=== PATIENT | male | born 1995 | race Caucasian/White ===

== ENCOUNTER 2025-06-23 22:23 | Emergency (ER) | payer BC, SELFPAY ==
[2025-06-23 22:34] VITALS: BP 127/63; PULSE 107; RESP 18; TEMP 36.4; O2SAT 97; BMI 21.6
--- NOTE | 2025-06-23 23:11 | ED.GENADULT ---
HPI - General Adult General Chief complaint: Unspecified Complaint, Adult Stated complaint: migraine Time Seen by Provider: 06/23/25 22:37 History of Present Illness HPI narrative: This 30-year-old female comes in with his significant other. He is reporting some symptoms of nausea and mild headache and feeling overheated. He was outside in a warm humid day today and states that he was drinking fluids and also reports having a couple beers but nothing excessive. He at times felt hot and cold. He arrives here with tachycardia and heart rate at 107 beats per minute. Other vital signs are in normal range. Coming in here in the air conditioning he states now that he is feeling better. Related Data Home Medications ?Medication ?Instructions ?Recorded ?Confirmed No Known Home Medications 06/23/25 06/23/25 Allergies Allergy/AdvReac Type Severity Reaction Status Date / Time cat dander Allergy Mild Verified 06/23/25 22:37 Review of Systems Status of ROS: Reports: 10 or more systems reviewed and unremarkable except as noted in History and below Narrative: Constitutional: No fevers, no weight gain or loss. Eyes: No discharge. No vision changes. HENT: No congestion, no sore throat, no ear pain. Cardiovascular: No chest pain, no palpitations. Respiratory: No shortness of breath, no wheezes, no cough. Gastrointestinal: No abdominal pain, no vomiting, no diarrhea. Genitourinary: No dysuria, no hematuria. Musculoskeletal: Normal range of motion. Skin: No rashes, no pruritis. Neurological: No dizziness, weakness, sensory change, speech change. Endo/Heme/Allergies: No bruising or bleeding. No polydipsia. Pysch: no suicidality, no anxiety, no insomnia. All other systems reviewed and are negative. PFSH PFS Social History Smoking Status: Never smoker How often do you have a drink containing alcohol: 2-4 times a month AUDIT-C Alcohol total score: 2 Non-prescribed substance use: denies use Exam Narrative: Exam Narrative: Constitutional: Well-developed, well-nourished, no acute distress. HEENT: Normocephalic, atraumatic. Neck: Normal range of motion. Nontender. Supple. Heart: Intact distal pulses. Mild tachycardia. Lungs: No chest discomfort. No wheezes, rhonchi, or rales. Abdomen: Nontender. Back: Normal range of motion. Extremities: Normal range of motion. No injury. Skin: Intact. No rash. Warm. No erythema or pallor. Neurologic: No altered sensation. No weakness. Alert and oriented. Psychiatric: No suicidality. No anxiety or depression. No insomnia. Nursing notes and vitals signs are reviewed. Const: Vital Signs, click to edit/add: Vital Signs - 24 hr 06/23/25 22:34 Temperature 97.5 F L Pulse Rate [Left P ulse Oximeter] 107 H Respiratory Rate 18 Blood Pressure [Ri ght Upper Arm] 127/63 Pulse Oximetry 97 Oxygen Delivery Me thod Room Air Course Vital Signs Vital signs: Initial Vital Signs Temperature 97.5 F L 06/23/25 22:34 Temperature Source Temporal Artery Scan 06/23/25 22:34 Pulse Rate 107 H 06/23/25 22:34 Respiratory Rate 18 06/23/25 22:34 Blood Pressure 127/63 06/23/25 22:34 Blood Pressure Mean 84 06/23/25 22:34 Blood Pressure Position Sitting 06/23/25 22:34 Pulse Oximetry 97 06/23/25 22:34 Oxygen Delivery Method Room Air 06/23/25 22:34 Vital Signs Temperature 97.5 F L 06/23/25 22:34 Pulse Rate 107 H 06/23/25 22:34 Respiratory Rate 18 06/23/25 22:34 Blood Pressure 127/63 06/23/25 22:34 Pulse Oximetry 97 06/23/25 22:34 Oxygen Delivery Method Room Air 06/23/25 22:34 Temperature 97.5 F L 06/23/25 22:34 Pulse Rate 107 H 06/23/25 22:34 Respiratory Rate 18 06/23/25 22:34 Blood Pressure 127/63 06/23/25 22:34 Pulse Oximetry 97 06/23/25 22:34 Oxygen Delivery Method Room Air 06/23/25 22:34 Medications Administered Medications: Discontinued Medications Generic Name Dose Route Start Last Admin Trade Name Freq PRN Reason Stop Dose Admin Ketorolac Tromethamine 10 mg 06/23/25 23:10 06/23/25 23:22 Ketorolac 10 Mg Tablet PO 06/23/25 23:11 10 mg ONCE ONE Administration Ondansetron HCl 4 mg 06/23/25 23:10 06/23/25 23:23 Ondansetron Odt 4 Mg Tab PO 06/23/25 23:11 4 mg ONCE ONE Administration Medical Decision Making MDM Narrative Medical decision making narrative: This patient comes in with typical symptoms of volume depletion and heat exhaustion. He states that he is feeling better after arriving here and cooling off. I stated that we typically do put an IV in with fluids and some medicines to help him feel better. He states that he is able to take oral liquids and preferred to have oral treatments. He did receive an oral dose of Toradol 10 mg and Zofran 4 mg. He has a bottle that he can take frequent sips of fluids. He states that he is feeling better and is okay to return home. Discharge Plan Discharge Clinical Impression: Fluid volume depletion Patient Disposition: Home, Self-Care Condition: Improved Additional Instructions: Take frequent sips of fluids and increase diet and activity otherwise as tolerated. Follow up with MD return if worsening. Prescriptions: No Action No Known Home Medications Stand Alone Forms: [employer] Info Instructions
[2025-06-23] MEDS: KETOROLAC 10 MG TABLET PO (23:22)
[2025-06-23] MEDS: ONDANSETRON ODT 4 MG TAB PO (23:23)
== END 2025-06-23 23:59 | disposition home or self-care (01) ==
LOC: ED 23:41
PROVIDERS: Emergency Provider Emergency Medicine Emergency Medical Services
DX: T67.5XXA Heat exhaustion, unspecified, initial encounter (principal); E86.9 Volume depletion, unspecified
CPT/HCPCS: 99283; 99284; A9270

== ENCOUNTER 2025-07-04 06:45 | Outpatient (CLI) | payer BC, SELFPAY | END 2025-07-04 06:46 | disposition home or self-care (01) | LOC: NFLDREF 07-11 02:29 | PROVIDERS: Visit Provider Registered Nurse | DX: Z31.41 Encounter for fertility testing (principal) | CPT/HCPCS: 89322 ==